=== PATIENT | male | born 1955 | race Caucasian/White ===

== ENCOUNTER 2022-11-25 09:32 | Inpatient (IN) ==
[2022-11-25] MEDS ORDERED: LABETALOL HCL IV 5 MG/ML 20ML IV STA (10:37)
--- NOTE | 2022-11-25 10:37 | Emergency Department Note ---
Impression & Plan Diplopia, Hypertension, Arrhythmia ED Provider Note Name: SERENA ADAMES Age: 67 Sex: M Arrives Via: Walk-In Informant: Patient, ED Provider: Doe Scott MD Chief Complaint: Visual disturbance Impression: As per impressions above Medical Decision Making: Pleasant 67-year-old gentleman with a history of hyperlipidemia and remote retinal tear arrives for evaluation of 30 minutes of diplopia during which said he had a disconjugate gaze and left eye looking outward. By time of arrival full resolution. He has questionable left eyebrow elevation but both t hrough his picture on his license and from discussion this is chronic for him. He has an NIH of 0 by examination. He is quite hypertensive with a blood pressure over 200. CT of the head with angio reveals no clear obstruction or mass effect or other concerning findings. Given labetalol with some improvement in the blood pressure though given concerns for stroke we will hold off on further antihypertensives at this time. He was given aspirin as concern for stroke. I also note that shortly after arrival patient had a 10 or so beat episode of what appears to be ventricular tachycardia. Patient had completely no symptoms during this and states he feels well. Initial troponin is unre markable. EKG looks good. Given concern for stroke in this arrhythmia hospitalist consulted for further management. Triage/Nursing Notes reviewed by Me Differentials:Stroke, migraine, hypertensive emergency, intracranial hemorrhage, infectious etiology, dissection, ocular spasm, V. tach, movement on lead, A-fib, many other pathologies considered. Vital Signs: reviewed and remarkable for hypertension Interventions: Labetalol 10 mg IV, aspirin 324 mg p.o. Labs:Reviewed and remarkable for no significant abnormalities Imagin view chest x-ray as per my interpretation no infiltrate, effusion, pneumothorax. CT of the head without contrast as per my informal interpretation. There is no mass effect, intracranial hemorrhage appreciated, other concerning findings. EKG:As per my interpretation. Indication strokelike symptoms. Normal sinus rhythm at 87 bpm QTc of 428. There is no ectopy no ischemia. There is no previous EKG for comparison. Cardiac/Tele Monitoring: Cardiac Monitoring: An Order was placed for continuous cardiac monitoring. The monitor shows a rate of 80 with a normal sinus rhythm. Consult: [facility] Plan: Disposition:Hospitalization. Condition: Good History of Present Illness:67-year-old gentleman arrives for evaluation of visual disturbance. Patient was making breakfast this morning around 8:30 AM. He noted sudden onset of difficulty seeing. He notes he was seeing double of everything. No dizziness, vertiginous symptoms, nausea, vomiting, headache. He had no other focal neurologic deficits. evaluated him as she is a nurse and noted that he had a disconjugate gaze with the left eye looking outward. This lasted about 1/2-hour and resolved. He has a left facial weakness which says is pretty much is typical and that his left eyebrow always raises a little more than the right and he talks out of the right side of his mouth. She does not feel he has any new focal deficits nor any slurred speech. He has been able to walk straight without difficulty. He is quite hypertensive and has no history of high blood pressure other than some mild whitecoat syndrome. He does not smoke. He does have a history of hyperlipidemia. No recent falls, trauma, injuries. He keeps relatively healthy. No recent long distance travel other than driving up from [place] yesterday. He is in town to watch the [employer] tomorrow. Past History:Hyperlipidemia, retinal detachment several years ago Past Surgical History:Hernia repair left knee replacement Home Medications:See Below Allergies:nkda Vitals:Blood Pressure: 202/112, Pulse 89, RR 16, O2 98% on RA Physical Exam: GENERAL: Patient is well appearing and in no acute distress. EYES: No scleral icterus, unremarkable pupils. ENT: Mucous membranes moist, no nasal congestion. NECK: No masses appreciated, nomeningismus, trachea is midline. RESPIRATORY: No dyspnea. Clear to auscultation and equal bilaterally. No wheeze, no rhonchi. CARDIOVASCULAR: Regular rate and rhythm.No murmurs, rubs, gallops appreciated. GASTROINTESTINAL: Abdomen soft, non-tender, no peritonitis. EXTREMITIES: Normal motion all extremities, no cyanosis, no edema. NEUROLOGIC: Alert and oriented, no acute motor or sensory deficits. There are no focal deficits of arms or legs with good strength. He has no ataxia on examination. When talking with patient he seems to talk out of the right side of his mouth with questionable left facial weakness though left eyebrow actually raises higher than right. He has full movement all facial muscles when voluntarily moving them. SKIN: No rash, no jaundice, no diaphoresis. PSYCH: Appropriate GCS: 15 ED Course: Times/Reassessments: Patient with no further arrhythmias nor symptoms. He is agreeable to hospitalization for further work-up and monitoring Doe Scott MD Past Med/Surg History Medical History (Updated 11/25/22 @ 15:48 by Doe Scott MD) Gout HLD (hyperlipidemia) Social History Smoking Status: Never smoker Feels Safe at Home: Yes Home Meds Home Medications Medication Instructions Recorded Confirmed allopurinol 100 mg tablet 100 mg PO QAM 11/25/22 11/25/22 atorvastatin 20 mg tablet 20 mg PO HS 11/25/22 11/25/22 Results & Data (ED) Vital Signs Vital Signs - 24 hr 11/25/22 09:46 11/25/22 10:04 11/25/22 10:11 Temperature Source Temporal Artery Scan Pulse Rate 97 H 95 H Pulse Rate [Apical] 89 Respiratory Rate 20 16 Respiratory Effort / Characteristics Non-Labored Non-Labored Respiratory Depth Normal Normal Blood Pressure 196/105 H Blood Pressure [Right Arm] 202/112 H Blood Pressure Mean 135 Blood Pressure Mean [Right Arm] 142 Pulse Oximetry 96 98 Oxygen Delivery Method Room Air Room Air Sepsis Recent Fever Within 48 Hours No Sepsis New/Unexplained Change in Mental Status N/A Sepsis Action Taken by Nursing No Action Required 11/25/22 10:42 11/25/22 10:57 11/25/22 11:04 Temperature Source Pulse Rate 91 H Pulse Rate [Apical] 91 H Respiratory Rate 18 Respiratory Effort / Characteristics Non-Labored Respiratory Depth Normal Blood Pressure 201/112 H 188/102 H Blood Pressure [Right Arm] 188/108 H Blood Pressure Mean Blood Pressure Mean [Right Arm] 134 Pulse Oximetry 98 Oxygen Delivery Method Room Air Sepsis Recent Fever Within 48 Hours Sepsis New/Unexplained Change in Mental Status Sepsis Action Taken by Nursing 11/25/22 12:04 Temperature Source Pulse Rate Pulse Rate [Apical] Respiratory Rate Respiratory Effort / Characteristics Respiratory Depth Blood Pressure Blood Pressure [Right Arm] 182/102 H Blood Pressure Mean Blood Pressure Mean [Right Arm] 128 Pulse Oximetry 98 Oxygen Delivery Method Room Air Sepsis Recent Fever Within 48 Hours Sepsis New/Unexplained Change in Mental Status Sepsis Action Taken by Nursing Laboratory Data 11/25/22 10:07 07/01/23 10:07 Lab Results 11/25/22 11/25/22 11/25/22 Range/Units 10:07 10:07 10:07 WBC 5.64 (4.8-10.8) K/ul RBC 5.42 (4.70-6.10) M/uL Hgb 15.4 (14.0-18.0) g/dl Hct 44.3 (42.0-52.0) % MCV 81.7 (80.0-100.0) fL MCH 28.4 (25.0-34.0) pg MCHC 34.8 (32.0-36.0) g/dL RDW Std Deviation 38.2 (36.4-46.3) fL RDW Coeff of Loi 13.0 (11.5-14.5) % Plt Count 222 (130-400) K/uL MPV 9.7 (9.4-12.4) fL Immature Gran % (Auto) 0.7 % Neut % (Auto) 60.2 % Lymph % (Auto) 25.4 % [place] % (Auto) 10.5 % Eos % (Auto) 2.0 % Baso % (Auto) 1.2 % Neut # (Auto) 3.40 (1.40-6.50) K/uL Lymph # (Auto) 1.43 (1.2-3.4) K/uL [place] # (Auto) 0.59 (0.11-0.59) K/uL Eos # (Auto) 0.11 (0-0.50) K/uL Baso # (Auto) 0.07 (0-0.2) K/uL Immature Gran # (Auto) 0.04 (0.01-0.20) K/uL PT 10.9 (9.0-12.0) Seconds INR 1.0 (0.9-1.1) APTT 24.8 (21.0-31.0) Seconds PTT Ratio 0.9 Sodium (136-145) mmol/L Potassium (3.5-5.1) mmol/L Chloride (98-107) mmol/L Carbon Dioxide (21-32) mmol/L Anion Gap (3-11) BUN (6-23) mg/dl Creatinine (0.6-1.4) mg/dl Est Cr Clr Drug Dosing ml/min Est GFR ( Amer) ml/min Est GFR (Non-Af Amer) ml/min BUN/Creatinine Ratio (10-20) Glucose (70-99(Fasting)) mg/dl Calcium (8.6-10.3) mg/dl Magnesium (1.7-2.4) mg/dl Total Bilirubin (0.2-1.0) mg/dl Direct Bilirubin (0-0.2) mg/dl AST (13-39) U/L ALT (7-52) U/L Alkaline Phosphatase (34-104) U/L Troponin I High Sens (0-20) pg/ml Total Protein (6.0-8.3) gm/dl Albumin (3.4-5.0) gm/dl TSH 1.388 (0.300-4.500) uIu/ml Urine Color Urine Appearance (Clear) Urine pH (4.5-7.5) Ur Specific [place] (1.000-1.030) Urine Protein (Negative) Urine Glucose (UA) (Negative) Urine Ketones (Negative) Urine Blood (Negative) Urine Nitrite (Negative) Urine Bilirubin (Negative) Urine Urobilinogen (Negative) Ur Leukocyte Esterase (Negative) SARS-CoV-2, RNA, NAAT (NEGATIVE) 11/25/22 11/25/22 11/25/22 Range/Units 10:07 11:32 12:21 WBC (4.8-10.8) K/ul RBC (4.70-6.10) M/uL Hgb (14.0-18.0) g/dl Hct (42.0-52.0) % MCV (80.0-100.0) fL MCH (25.0-34.0) pg MCHC (32.0-36.0) g/dL RDW Std Deviation (36.4-46.3) fL RDW Coeff of Loi (11.5-14.5) % Plt Count (130-400) K/uL MPV (9.4-12.4) fL Immature Gran % (Auto) % Neut % (Auto) % Lymph % (Auto) % [place] % (Auto) % Eos % (Auto) % Baso % (Auto) % Neut # (Auto) (1.40-6.50) K/uL Lymph # (Auto) (1.2-3.4) K/uL [place] # (Auto) (0.11-0.59) K/uL Eos # (Auto) (0-0.50) K/uL Baso # (Auto) (0-0.2) K/uL Immature Gran # (Auto) (0.01-0.20) K/uL PT (9.0-12.0) Seconds INR (0.9-1.1) APTT (21.0-31.0) Seconds PTT Ratio Sodium 138 (136-145) mmol/L Potassium 4.0 (3.5-5.1) mmol/L Chloride 105 (98-107) mmol/L Carbon Dioxide 26 (21-32) mmol/L Anion Gap 7 (3-11) BUN 17 (6-23) mg/dl Creatinine 1.28 (0.6-1.4) mg/dl Est Cr Clr Drug Dosing 65.4 ml/min Est GFR ( Amer) 65.7 ml/min Est GFR (Non-Af Amer) 56.7 ml/min BUN/Creatinine Ratio 13.3 (10-20) Glucose 107 H (70-99(Fasting)) mg/dl Calcium 9.1 (8.6-10.3) mg/dl Magnesium 1.8 (1.7-2.4) mg/dl Total Bilirubin 0.9 (0.2-1.0) mg/dl Direct Bilirubin 0.2 (0-0.2) mg/dl AST 22 (13-39) U/L ALT 23 (7-52) U/L Alkaline Phosphatase 60 (34-104) U/L Troponin I High Sens 3.3 (0-20) pg/ml Total Protein 7.0 (6.0-8.3) gm/dl Albumin 4.4 (3.4-5.0) gm/dl TSH (0.300-4.500) uIu/ml Urine Color Yellow Urine Appearance Clear (Clear) Urine pH 7.0 (4.5-7.5) Ur Specific [place] 1.042 H (1.000-1.030) Urine Protein Negative (Negative) Urine Glucose (UA) Negative (Negative) Urine Ketones Negative (Negative) Urine Blood Negative (Negative) Urine Nitrite Negative (Negative) Urine Bilirubin Negative (Negative) Urine Urobilinogen Negative (Negative) Ur Leukocyte Esterase Negative (Negative) SARS-CoV-2, RNA, NAAT NEGATIVE (NEGATIVE) Administered Medications Discontinued Medications Aspirin (Aspirin 81 Mg Chew) 324 mg PO NOW STA Stop: 11/25/22 12:09 Last Admin: 11/25/22 12:18 Dose: 324 mg Documented By: KELLEY Ioversol (Optiray 320 125ml) 120 ml IV ONCE ONE Stop: 11/25/22 10:51 Last Admin: 11/25/22 10:50 Dose: 120 ml Documented By: GERTRUDIS Labetalol HCl (Labetalol Hcl Iv 5 Mg/Ml 20ml) 10 mg IV NOW STA Stop: 11/25/22 10:38 Last Admin: 11/25/22 10:42 Dose: 10 mg Documented By: KELLEY Co-signed By: [facility] Imaging Data Radiologist's Impression: Head CTA 11/25/22 10:32 HEAD & NECK CTA HISTORY: Double vision. stroke symptoms TECHNIQUE: Multiaxial CT images of the head were performed both before and after the intravenous administration of contrast to evaluate the major cerebral vessels. Multiaxial CT images of the neck were also performed following the intravenous administration of contrast to evaluate the major cervical vessels. Maximum intensity projection images were also obtained. A dose lowering technique was utilized adhering to the principles of ALARA. COMPARISON: None. FINDINGS: Noncontrast head CT: The paranasal sinuses and mastoid air cells are clear. The calvarium and skull base are intact. The ventricles and sulci are within normal limits. There is no mass, hematoma, midline shift, acute infarct. Head CTA: Visualized intracranial internal carotid arteries, distal vertebral arteries, and basilar artery are widely patent. There is no significant stenosis, occlusion, or aneurysm seen within the bilateral ACAs, MCAs, or ornamental iron worker helper. The major dural venous sinuses appear patent. There is a hypoplastic distal right vertebral artery. There is a dominant left vertebral artery noted. There is also a severely hypoplastic right A1 segment. The aortic arch and proximal great vessels are widely patent. There is no significant stenosis, occlusion, or dissection identified within the bilateral common carotid, internal carotid, or vertebral arteries. IMPRESSION: 1. No significant stenosis, occlusion, or aneurysm within the elem of [place]. 2. No significant stenosis, occlusion, or dissection identified within the carotid or vertebral arteries. 3. No acute intracranial abnormality. ACT 112: Negative or not required by law. Electronically signed by: Roney Nickerson M.D. 11/25/2022 11:14 AM Neck CTA 11/25/22 10:32 HEAD & NECK CTA HISTORY: Double vision. stroke symptoms TECHNIQUE: Multiaxial CT images of the head were performed both before and after the intravenous administration of contrast to evaluate the major cerebral vessels. Multiaxial CT images of the neck were also performed following the intravenous administration of contrast to evaluate the major cervical vessels. Maximum intensity projection images were also obtained. A dose lowering technique was utilized adhering to the principles of ALARA. COMPARISON: None. FINDINGS: Noncontrast head CT: The paranasal sinuses and mastoid air cells are clear. The calvarium and skull base are intact. The ventricles and sulci are within normal limits. There is no mass, hematoma, midline shift, acute infarct. Head CTA: Visualized intracranial internal carotid arteries, distal vertebral arteries, and basilar artery are widely patent. There is no significant stenosis, occlusion, or aneurysm seen within the bilateral ACAs, MCAs, or ornamental iron worker helper. The major dural venous sinuses appear patent. There is a hypoplastic distal right vertebral artery. There is a dominant left vertebral artery noted. There is also a severely hypoplastic right A1 segment. The aortic arch and proximal great vessels are widely patent. There is no significant stenosis, occlusion, or dissection identified within the bilateral common carotid, internal carotid, or vertebral arteries. IMPRESSION: 1. No significant stenosis, occlusion, or aneurysm within the elem of [place]. 2. No significant stenosis, occlusion, or dissection identified within the carotid or vertebral arteries. 3. No acute intracranial abnormality. ACT 112: Negative or not required by law. Electronically signed by: Roeny Nickerson M.D. 11/25/2022 11:14 AM Chest X-Ray 11/25/22 10:33 XR chest 1V portable HISTORY: Stroke symptoms. Double vision. COMPARISON: None. FINDINGS: The lungs are clear. Cardiac silhouette is normal in size. No pleural effusions. No pneumothorax. IMPRESSION: No acute process. ACT 112: Negative or not required by law. Electronically signed by: Roney Nickerson M.D. 11/25/2022 12:18 PM Discharge Plan Visit Data Chief Complaint: Visual Disturbance Stated Complaint: DOUBLE VISION ED Provider: Doe Scott Discharge Problem: Diplopia, Hypertension, Arrhythmia Patient Disposition: Admitted As Inpatient Forms Stand Alone Forms: My [facility] Prescriptions Prescriptions: No Action atorvastatin 20 mg tablet 20 mg PO HS allopurinol 100 mg tablet 100 mg PO QAM Referrals Referrals: PCP,NO [Physician] - Hypertension Qualifiers: Hypertension type: unspecified Qualified Code(s): I10 - Essential (primary) hyp ertension Arrhythmia Qualifiers: Arrhythmia type: unspecified cardiac arrhythmia Qualified Code(s): I49.9 - Car diac arrhythmia, unspecified
[2022-11-25] MEDS ORDERED: OPTIRAY 320 125ml IV ONE (10:50)
[2022-11-25 10:54] LABS: Basophils # (auto) 0.07 K/uL (0-0.2); Basophils % (auto) 1.2 %; Eosinophils # (auto) 0.11 K/uL (0-0.50); Hematocrit (blood only) 44.3 % (42.0-52.0); Hemoglobin 15.4 g/dl (14.0-18.0); Immature Granulocytes # (auto) 0.04 K/uL (0.01-0.20); Immature Granulocytes % (auto) 0.7 %; Lymphocytes # (auto) 1.43 K/uL (1.2-3.4); Lymphocytes % (auto) 25.4 %; Mean Corpuscular Hemoglobin 28.4 pg (25.0-34.0); Mean Corpuscular Hgb Conc 34.8 g/dL (32.0-36.0); Mean Corpuscular Volume 81.7 fL (80.0-100.0); Mean Platelet Volume 9.7 fL (9.4-12.4); Monocytes # (auto) 0.59 K/uL (0.11-0.59); Monocytes % (auto) 10.5 %; Neutrophils % (auto) 60.2 %; Platelet Count 222 K/uL (130-400); RDW Standard Deviation 38.2 fL (36.4-46.3); Red Blood Count 5.42 M/uL (4.70-6.10); White Blood Count 5.64 K/ul (4.8-10.8)
[2022-11-25 11:05] LABS: Albumin Level 4.4 gm/dl (3.4-5.0); BUN Creatinine Ratio 13.3 (10-20); Bilirubin Direct 0.2 mg/dl (0-0.2); Bilirubin,Total 0.9 mg/dl (0.2-1.0); Calcium 9.1 mg/dl (8.6-10.3); Creatinine Clr Calc Pharmacy 65.4 ml/min; Est GFR (African American) 65.7 ml/min; Est GFR (Non-African American) 56.7 ml/min; Magnesium 1.8 mg/dl (1.7-2.4)
[2022-11-25 11:11] LABS: Troponin I High Sensitivity 3.3 pg/ml (0-20)
[2022-11-25 11:14] LABS: Partial Thromboplastin Ratio 0.9; Partial Thromboplastin Time 24.8 Seconds (21.0-31.0); Prothrombin Time 10.9 Seconds (9.0-12.0)
--- NOTE | 2022-11-25 11:16 | CT Scan Report ---
HEAD & NECK CTA HISTORY: Double vision. stroke symptoms TECHNIQUE: Multiaxial CT images of the head were performed both before and after the intravenous admi nistration of contrast to evaluate the major cerebral vessels. Multiaxial CT images of the neck were also performed following the intravenous administration of contrast to evaluate the major cervical ve ssels. Maximum intensity projection images were also obtained. A dose lowering technique was utilized adhering to the principles of ALARA. COMPARISON: None. FINDINGS: Noncontrast head CT: The paranasal sinuses and mastoid air cells are clear. The calvarium and skull b ase are intact. The ventricles and sulci are within normal limits. There is no mass, hematoma, midlin e shift, acute infarct. Head CTA: Visualized intracranial internal carotid arteries, distal vertebral arteries, and basilar a rtery are widely patent. There is no significant stenosis, occlusion, or aneurysm seen within the la ateral ACAs, MCAs, or high scaler. The major dural venous sinuses appear patent. There is a hypoplastic dist al right vertebral artery. There is a dominant left vertebral artery noted. There is also a severely hypoplastic right A1 segment. The aortic arch and proximal great vessels are widely patent. There is no significant stenosis, occ lusion, or dissection identified within the bilateral common carotid, internal carotid, or vertebral arteries. IMPRESSION: 1. No significant stenosis, occlusion, or aneurysm within the [place]. 2. No significant stenosis, occlusion, or dissection identified within the carotid or vertebral arter ies. 3. No acute intracranial abnormality. ACT 112: Negative or not required by law. Electronically signed by: Roney Nickerson M.D. 11/25/2022 11:14 AM
--- NOTE | 2022-11-25 11:16 | CT Scan Report ---
HEAD & NECK CTA HISTORY: Double vision. stroke symptoms TECHNIQUE: Multiaxial CT images of the head were performed both before and after the intravenous admi nistration of contrast to evaluate the major cerebral vessels. Multiaxial CT images of the neck were also performed following the intravenous administration of contrast to evaluate the major cervical ve ssels. Maximum intensity projection images were also obtained. A dose lowering technique was utilized adhering to the principles of ALARA. COMPARISON: None. FINDINGS: Noncontrast head CT: The paranasal sinuses and mastoid air cells are clear. The calvarium and skull b ase are intact. The ventricles and sulci are within normal limits. There is no mass, hematoma, midlin e shift, acute infarct. Head CTA: Visualized intracranial internal carotid arteries, distal vertebral arteries, and basilar a rtery are widely patent. There is no significant stenosis, occlusion, or aneurysm seen within the la ateral ACAs, MCAs, or harpsichord maker. The major dural venous sinuses appear patent. There is a hypoplastic dist al right vertebral artery. There is a dominant left vertebral artery noted. There is also a severely hypoplastic right A1 segment. The aortic arch and proximal great vessels are widely patent. There is no significant stenosis, occ lusion, or dissection identified within the bilateral common carotid, internal carotid, or vertebral arteries. IMPRESSION: 1. No significant stenosis, occlusion, or aneurysm within the [place]. 2. No significant stenosis, occlusion, or dissection identified within the carotid or vertebral arter ies. 3. No acute intracranial abnormality. ACT 112: Negative or not required by law. Electronically signed by: Roney Nickerson M.D. 11/25/2022 11:14 AM
[2022-11-25 11:53] LABS: Appearance Urine Clear (Clear); Bilirubin Urine Negative (Negative); Blood Urine Negative (Negative); Color Urine Yellow; Glucose Urine UA Negative (Negative); Ketones Urine Negative (Negative); Leukocyte Esterase Urine Negative (Negative); Nitrite Urine Negative (Negative); Protein Urine Negative (Negative); Specific Gravity Urine 1.042 (1.000-1.030); Urobilinogen Urine Negative (Negative)
[2022-11-25] MEDS ORDERED: ASPIRIN 81 MG CHEW PO STA (12:08)
--- NOTE | 2022-11-25 12:20 | XRay Report ---
XR chest 1V portable HISTORY: Stroke symptoms. Double vision. COMPARISON: None. FINDINGS: The lungs are clear. Cardiac silhouette is normal in size. No pleural effusions. No pneumot horax. IMPRESSION: No acute process. ACT 112: Negative or not required by law. Electronically signed by: Roney Nickerson M.D. 11/25/2022 12:18 PM
--- NOTE | 2022-11-25 12:28 | History & Physical Report ---
Date of Service November 25, 2022 Assessment & Plan (1) Diplopia: (2) Skew deviation of left eye: (3) Hypertensive urgency: (4) HLD (hyperlipidemia): Plan: - Admit to PCU for observation - Stroke order set completed, no indication for thrombolytic - CTA head and neck reviewed and is negative - MRI brain wo contrast ordered - Consider neurology consult - Given full dose aspirin in the er - BP elevated at 202/112 in the ER, given lebatolol 10 mg IV x 1 with impro vement of BP 180/100, prn lebatolol ordered with parameters. Will allow permissive hypertension with SBP 140-180, pt is not on BP medication at home, will need to have PCP follow this upon discharge vs considering starting low dose antihypertensive - EKG with SVT x5 beats, patient was asymptomatic during such and was sitting down when this occurred on EKG, monitor with troponins, initial was negative, complete echo ordered - PT/OT consults placed - Check lipid panel and A1c with a.m. labs DVT ppx: - teds, scds CODE: Full code Dispo: From home, likely to remain in the hospital x 1-2 days A total of 78 minutes were spent with greater than 50% of that time face to face with the patient, personally reviewing all current laboratories, imaging studies, past medication reconciliation, outpatient chart review, and discussion with specialists to collaborate care for the patient with attending. Please see attending documentation for corrections and/or additions. History of Present Illness Chief Complaint: Diplopia x30 minutes Primary Care Provider: JAY JAY BARAJAS This is a 67-year-old male with PMHx of HLD, HTN, history of bilateraly retinal detachment s/p repair, HLD, who presents today with acute onset of diplopia and left-sided conjugate gaze which occurred this morning at 8am and lasted ~45 min, and now is completely resolved. This was noticed while he was cooking breakfast. His is with him at bedside who is a retired CORRESPONDENCE REPRESENTATIVE, and notes that his left eyebrow is always slightly elevated, and that the left eye was in a lateral gaze, but was able to move appropriately with visual field testing. He denies any other symptoms such as focal weakness, numbness, slurred speech, dysphagia, or pain. Pt proceeded to get a shower, and then he cracked his neck to the left side, his symptoms seemed to completely resolve. Pt also notes that 2 days ago, he was sleeping and had a cramp in the left side of his neck and it has slowly improved. BP is noted elevated at 200/100s in the ER and was administered lebatolol 10 mg IV with some improvement. In the past, pt has been told that he had elevated BP by PCP for at least 2 years. states his BP normally runs 145/70s at home regularly. He is currently taking atorvastatin 20 mg daily and allopurinol for hx of gout which he had a few years ago, without recurrent flares. They were in the area from [facility], for the [employer] as their son and [id number] are competing in tomorrow morning. Pt reports he exercises routinely with a stepper, weight lifting, very active. Denies smoking, has an occasional alcoholic drink with beer, denies drug use or marijuana use. 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 Hernia Repair Tonsillectomy Home Medications Medication Instructions Recorded Confirmed Type allopurinol 100 mg tablet 100 mg PO QAM 11/25/22 11/25/22 History atorvastatin 20 mg tablet 20 mg PO HS 11/25/22 11/25/22 History Past Med/Surg History Medical History (Updated 11/25/22 @ 15:48 by Doe Scott MD) Gout HLD (hyperlipidemia) Social History Smoking Status: Never smoker Hx Alcohol Use: Yes Alcohol type: beer Hx Substance Use: No Preferred Language: [place]inean Communication Ability: Effective Lead Software Development Engineer Required: No Beliefs That Will Affect Care: None Current Living Situation: Spouse Other Information That Helps Us Care for You: No Feels Safe at Home: Yes Safety Concerns: Feels Safe At This Time Assistive Devices: Glasses Review of Systems Review of Systems: Constitutional: No fever, sweats or chills Eyes: + diplopia and left sided gaze as per HPI, now resolved, no worsening or blurred vision ENT: normal hearing, no trouble swallowing Respiratory: No cough, sputum, dyspnea at rest or on exertion Cardiovascular: No chest pain, tightness or palpitations Abdomen: No pain, nausea, vomiting, diarrhea or constipation Musculoskeletal: No joint pain, calf pain, swelling Neurologic: No weakness, numbness/tingling, or balance problems Psychiatric: No anxiety or depression Skin: No rash or itch Physical Exam Physical Exam: General: awake, alert, no apparent distress Head: Normocephalic, atraumatic ENT: PERRL, EOMI, visual hawkins intact, can follow finger to nose testing without difficulty, no nystagmus, no pharyngeal exudate, mucous membranes moist Chest: Clear to auscultation, on room air, no adventitious breath sounds Cardiac: Regular rate and rhythm, no murmur, no JVD, normal peripheral pulses, good capillary refill Abdominal: NABS x 4 quadrants, soft, nondistended, nontender to palpation, no rebound or guarding Extremities: Normal inspection, no peripheral edema or erythema, calfs nontender to palpation Psych: Normal mood and affect Neuro: AAO x 3, isual hawkins intact, can follow finger to nose testing without difficulty, no nystagmus, CN II=XII intact, strength intact bilaterally and rated 5/5, no motor deficits, speech is clear, no peripheral sensory deficits Results & Data Results & Data Vital Signs (Past 12 Hours) Vital Signs Pulse Pulse Resp BP BP Pulse Ox O2 Del Method 11/25/22 12:04 182/102 H 98 Room Air 11/25/22 11:04 188/102 H 11/25/22 10:57 91 H 18 188/108 H 98 Room Air 11/25/22 10:42 91 H 201/112 H 11/25/22 10:11 89 16 202/112 H 98 Room Air 11/25/22 10:04 95 H 11/25/22 09:46 97 H 20 196/105 H 96 Room Air Laboratory Results 11/25/22 11/25/22 11/25/22 11:32 10:07 10:07 WBC 5.64 RBC 5.42 Hgb 15.4 Hct 44.3 MCV 81.7 MCH 28.4 MCHC 34.8 RDW Std Deviation 38.2 RDW Coeff of Loi 13.0 Plt Count 222 MPV 9.7 Immature Gran % (Auto) 0.7 Neut % (Auto) 60.2 Lymph % (Auto) 25.4 Metcalfe % (Auto) 10.5 Eos % (Auto) 2.0 Baso % (Auto) 1.2 Neut # (Auto) 3.40 Lymph # (Auto) 1.43 [place] # (Auto) 0.59 Eos # (Auto) 0.11 Baso # (Auto) 0.07 Immature Gran # (Auto) 0.04 PT INR APTT PTT Ratio Sodium 138 Potassium 4.0 Chloride 105 Carbon Dioxide 26 Anion Gap 7 BUN 17 Creatinine 1.28 Est Cr Clr Drug Dosing 65.4 Est GFR ( Amer) 65.7 Est GFR (Non-Af Amer) 56.7 BUN/Creatinine Ratio 13.3 Glucose 107 H Calcium 9.1 Magnesium 1.8 Total Bilirubin 0.9 Direct Bilirubin 0.2 AST 22 ALT 23 Alkaline Phosphatase 60 Troponin I High Sens 3.3 Total Protein 7.0 Albumin 4.4 TSH Urine Color Yellow Urine Appearance Clear Urine pH 7.0 Ur Specific [place] 1.042 H Urine Protein Negative Urine Glucose (UA) Negative Urine Ketones Negative Urine Blood Negative Urine Nitrite Negative Urine Bilirubin Negative Urine Urobilinogen Negative Ur Leukocyte Esterase Negative 11/25/22 11/25/22 10:07 10:07 WBC RBC Hgb Hct MCV MCH MCHC RDW Std Deviation RDW Coeff of Loi Plt Count MPV Immature Gran % (Auto) Neut % (Auto) Lymph % (Auto) [place]cal[place] % (Auto) Eos % (Auto) Baso % (Auto) Neut # (Auto) Lymph # (Auto) [place] # (Auto) Eos # (Auto) Baso # (Auto) Immature Gran # (Auto) PT 10.9 INR 1.0 APTT 24.8 PTT Ratio 0.9 Sodium Potassium Chloride Carbon Dioxide Anion Gap BUN Creatinine Est Cr Clr Drug Dosing Est GFR ( Amer) Est GFR (Non-Af Amer) BUN/Creatinine Ratio Glucose Calcium Magnesium Total Bilirubin Direct Bilirubin AST ALT Alkaline Phosphatase Troponin I High Sens Total Protein Albumin TSH 1.388 Urine Color Urine Appearance Urine pH Ur Specific [place] Urine Protein Urine Glucose (UA) Urine Ketones Urine Blood Urine Nitrite Urine Bilirubin Urine Urobilinogen Ur Leukocyte Esterase Diagnostic Findings Head CTA 11/25/22 10:32 HEAD & NECK CTA HISTORY: Double vision. stroke symptoms TECHNIQUE: Multiaxial CT images of the head were performed both before and after the intravenous administration of contrast to evaluate the major cerebral v essels. Multiaxial CT images of the neck were also performed following the intravenous administration of contrast to evaluate the major cervical vessels. Maximum intensity projection images were also obtained. A dose lowering technique was utilized adhering to the principles of ALARA. COMPARISON: None. FINDINGS: Noncontrast head CT: The paranasal sinuses and mastoid air cells are clear. The calvarium and skull base are intact. The ventricles and sulci are within normal limits. There is no mass, hematoma, midline shift, acute infarct. Head CTA: Visualized intracranial internal carotid arteries, distal vertebral arteries, and basilar artery are widely patent. There is no significant stenosis, occlusion, or aneurysm seen within the bilateral ACAs, MCAs, or warehouse guard. The major dural venous sinuses appear patent. There is a hypoplastic distal right vertebral artery. There is a dominant left vertebral artery noted. There is also a severely hypoplastic right A1 segment. The aortic arch and proximal great vessels are widely patent. There is no significant stenosis, occlusion, or dissection identified within the bilateral common carotid, internal carotid, or vertebral arteries. IMPRESSION: 1. No significant stenosis, occlusion, or aneurysm within the [place] of [place]. 2. No significant stenosis, occlusion, or dissection identified within the carotid or vertebral arteries. 3. No acute intracranial abnormality. ACT 112: Negative or not required by law. Electronically signed by: Roney Nickerson M.D. 11/25/2022 11:14 AM Neck CTA 11/25/22 10:32 HEAD & NECK CTA HISTORY: Double vision. stroke symptoms TECHNIQUE: Multiaxial CT images of the head were performed both before and after the intravenous administration of contrast to evaluate the major cerebral vessels. Multiaxial CT images of the neck were also performed following the intravenous administration of contrast to evaluate the major cervical vessels. Maximum intensity projection images were also obtained. A dose lowering technique was utilized adhering to the principles of ALARA. COMPARISON: None. FINDINGS: Noncontrast head CT: The paranasal sinuses and mastoid air cells are clear. The calvarium and skull base are intact. The ventricles and sulci are within normal limits. There is no mass, hematoma, midline shift, acute infarct. Head CTA: Visualized intracranial internal carotid arteries, distal vertebral arteries, and basilar artery are widely patent. There is no significant stenosis, occlusion, or aneurysm seen within the bilateral ACAs, MCAs, or warehouse guard. The major dural venous sinuses appear patent. There is a hypoplastic distal right vertebral artery. There is a dominant left vertebral artery noted. There is also a severely hypoplastic right A1 segment. The aortic arch and proximal great vessels are widely patent. There is no significant stenosis, occlusion, or dissection identified within the bilateral common carotid, internal carotid, or vertebral arteries. IMPRESSION: 1. No significant stenosis, occlusion, or aneurysm within the [place]. 2. No significant stenosis, occlusion, or dissection identified within the carotid or vertebral arteries. 3. No acute intracranial abnormality. ACT 112: Negative or not required by law. Electronically signed by: Roney Nickerson M.D. 11/25/2022 11:14 AM Chest X-Ray 11/25/22 10:33 XR chest 1V portable HISTORY: Stroke symptoms. Double vision. COMPARISON: None. FINDINGS: The lungs are clear. Cardiac silhouette is normal in size. No pleural effusions. No pneumothorax. IMPRESSION: No acute process. ACT 112: Negative or not required by law. Electronically signed by: Roney Nickerson M.D. 11/25/2022 12:18 PM Code Status & VTE Plan Code Status Full code Supervising Physician Co-Signing Physician Notes Pt seen and examined by myself, Abril Wheat MD on the day of service. Care was coordinated with Kyleigh Solo PA-C. Please refer to her note for additional information. 67yoM admitted for stroke rule out in the setting of HTN and HLD. States he had an episode of diplopia with noted left eye deviation by his who is a nurse, lasted about 30 minutes this morning. Denies slurred speech or new facial droop. Head CTA, neck CTA unremarkable, MRI unremarkable. Possible TIA vs. other. Echo pending, neurology consult for further recommendations Otherwise as above.
[2022-11-25] MEDS ORDERED: ATORVASTATIN 40 MG TAB PO ONE (13:28)
--- NOTE | 2022-11-25 16:13 | Magnetic Resonance Report ---
Brain MRI WITHOUT CONTRAST HISTORY: Diplopia, r/o cva TECHNIQUE: Multiplanar multisequence MRI of the brain was performed without the use of contrast. COMPARISON STUDY: Head CTA 11/25/2022. FINDINGS: There are no areas of restricted diffusion to suggest acute infarction. The midline structu res are intact. The paranasal sinuses are clear. The mastoid air cells are clear. The ventricles and sulci are within normal limits for age. There is no mass, hematoma, midline shift. The major vascular flow-voids at the skull base are well maintained. The orbits are unremarkable. A few punctate foci o f T2 hyperintensity seen within the periventricular and subcortical white matter. These are nonspecif ic but favor minimal microvascular ischemic change given the patient's age. IMPRESSION: No acute intracranial abnormality. ACT 112: Negative or not required by law. Electronically signed by: Roney Nickerson M.D. 11/25/2022 4:11 PM
[2022-11-25] MEDS ORDERED: PHARMACIST DISCHARGE MED REC CONSULT PRN (17:12)
[2022-11-25] MEDS ORDERED: LABETALOL HCL IV 5 MG/ML 20ML IV PRN (17:12)
[2022-11-26 02:26] LABS: Basophils # (auto) 0.09 K/uL (0-0.2); Basophils % (auto) 1.2 %; Eosinophils # (auto) 0.18 K/uL (0-0.50); Eosinophils % (auto) 2.4 %; Hematocrit (blood only) 41.6 % (42.0-52.0); Hemoglobin 14.6 g/dl (14.0-18.0); Immature Granulocytes # (auto) 0.03 K/uL (0.01-0.20); Immature Granulocytes % (auto) 0.4 %; Lymphocytes % (auto) 33.9 %; Mean Corpuscular Hemoglobin 28.7 pg (25.0-34.0); Mean Corpuscular Hgb Conc 35.1 g/dL (32.0-36.0); Mean Corpuscular Volume 81.7 fL (80.0-100.0); Mean Platelet Volume 9.5 fL (9.4-12.4); Monocytes # (auto) 0.78 K/uL (0.11-0.59); Monocytes % (auto) 10.6 %; Neutrophils % (auto) 51.5 %; Platelet Count 193 K/uL (130-400); RDW Standard Deviation 38.1 fL (36.4-46.3); Red Blood Count 5.09 M/uL (4.70-6.10); White Blood Count 7.38 K/ul (4.8-10.8)
[2022-11-26 02:38] LABS: BUN Creatinine Ratio 15.1 (10-20); Calcium 8.9 mg/dl (8.6-10.3); Chol HDL Ratio 4.3 (0-5); Est GFR (African American) 82.6 ml/min; Est GFR (Non-African American) 71.3 ml/min
[2022-11-26 07:18] LABS: Estimated Average Glucose 108 mg/dl; Hemoglobin A1C 5.4 % (4.5-5.6)
[2022-11-26] MEDS: Patient's ALLERGY Info needs ENTERED SCH ×2 (08:27→08:29)
[2022-11-26] MEDS ORDERED: ATORVASTATIN 40 MG TAB PO SCH (09:00)
[2022-11-26] MEDS ORDERED: allopurinoL 100 MG TAB PO SCH (09:00)
[2022-11-26] MEDS ORDERED: amLODIPine BESYLATE 5 MG TAB PO SCH ×2 (09:00→09:45)
[2022-11-26] MEDS ORDERED: ASPIRIN 81 MG ECTAB PO SCH (09:00)
--- NOTE | 2022-11-26 09:08 | Neurology Consultation ---
Date of Consultation November 26, 2022 Assessment & Plan (1) Diplopia: (2) Hypertensive urgency: Plan 67-year-old male presenting with a 30-minute episode of horizontal diplopia in the context of hypertensive urgency. He may have had a transient ischemic 3rd nerve palsy (TIA) triggered by hypertensive urgency. No evidence of vascular lesion identified on CT angiography of the head and neck. No evidence of acute or subacute stroke identified on brain MRI. He has a normal sinus rhythm. I agree with the addition of aspirin 81 mg/day. I agree with increasing patient's dosage of atorvastatin. Goal LDL 70 or less. Because his LDL is 80, he may not require the 80 mg atorvastatin dosage long- term, could be reduced to 40 mg/day. I agree with the addition of amlodipine. He should continue with an antihypertensive at time of discharge and will need ongoing follow-up with his PCP. No further neurologic recommendations. History of Present Illness Reason for Consultation: TIA Requesting Physician: Kyleigh Solo PA-C Attending Physician: Emmett Cho MD History of Present Illness The patient is a 67-year-old male, visiting from out of town to watch his daughter in a local race, who presented to the emergency department yesterday with a chief complaint of double vision that began suddenly at around 8:30 AM. He proceeded to [id number] objects, with one of them appearing closer than the other. His spouse observed his left eye deviating laterally. The symptoms lasted for about 30 minutes and have completely resolved. He denies experiencing any associated vision loss or ocular pain. No headache or neck pain. He denies experiencing any associated weakness or numbness of the limbs or change in speech during the episode. He has been afebrile and hypertensive. A CTA of the head and neck were unremarkable. A brain MRI was negative for acute abnormality. I independently reviewed these images. No evidence of acute or subacute stroke. There is mild microvascular ischemic disease. An electrocardiogram reveals a normal sinus rhythm. A CBC and comprehensive metabolic panel are unremarkable. Cholesterol 138, LDL 80. Allergies Allergy/AdvReac Type Severity Reaction Status Date / Time No Known Allergies Allergy Verified 11/26/22 08:36 Home Medications Medication Instructions Recorded Confirmed Type allopurinol 100 mg tablet 100 mg PO QAM 11/25/22 11/25/22 History atorvastatin 20 mg tablet 20 mg PO HS 11/25/22 11/25/22 History Patient History Medical History Gout HLD (hyperlipidemia) Social History Smoking Status: Never smoker Hx Alcohol Use: Yes Alcohol type: beer Hx Substance Use: No Preferred Language: [place] Communication Ability: Effective Credit And Collection Manager Required: No Beliefs That Will Affect Care: None Current Living Situation: Spouse Other Information That Helps Us Care for You: No Feels Safe at Home: Yes Safety Concerns: Feels Safe At This Time Assistive Devices: Glasses Review of Systems Constitutional: no fever and no chills Eyes: as per Subjective / HPI and + diplopia; no blind spots and no eye pain Ear, Nose, Mouth, Throat: no hearing loss Respiratory: no cough and no dyspnea Cardiovascular: no chest pain and no palpitations Gastrointestinal: no nausea and no vomiting Genitourinary: no urinary incontinence Musculoskeletal: no neck pain and no myalgia Integumentary: no rash and no lesions Neurologic: as per Subjective / HPI; no gait abnormality, no localized weakness, no loss of sensation, no lack of coordination, no syncope, no headache(s) and no confusion Psychiatric: no depression and no anxiety Hematologic / Lymphatic: no easy bleeding and no easy bruising Exam (Neuro) Constitutional: well developed and well nourished; no acute distress Eyes: normal visual hawkins by confrontation, PERRL, normal accommodation and EOM intact bilaterally; no fundoscopic abnormality, no nystagmus and no papilledema Cardiovascular: Vessels: normal carotid upstroke; no carotid bruit Neurologic: Oriented to:: Person, Place and Time Memory: Short Term Intact and Remote Intact Attention: Span Intact and Concentration Intact Language: Naming Objects and Repeating Phrases Speech Fluency: negative Dysarthria Speech Aphasia: negative Aphasia Fund of Knowledge: Current Events, Past History and Vocabulary Cranial Nerves: Normal II (Visual hawkins full to confrontation, visual acuity normal), III, IV, (Pupils equal round reactive to light and accommodation, eye movements normal), V (Facial sensation intact), VII (There is no facial droop or weakness), VIII (Hearing intact), IX, X (Palate elevates to midline), XI (Shoulder shrug intact) and XII (Tongue protrudes to midline) Motor Strength: Normal Lower Extremities and Normal Upper Extremities; negative Pronator Drift Motor Tone: Normal Lower Extremities and Normal Upper Extremities Muscle Bulk/Involuntary Movements: No Involuntary Movements; negative Muscle Atrophy Sensation: Light Touch Intact, Pain/Temperature Intact, Vibration Intact and Proprioception Intact Coordination: Normal; negative Limited Balance, Dysdiadochokinesia, Finger-Nose Abnormal or Heel-Kirkpatrick Abnormal Deep Tendon Reflexes: Rt Triceps: 2+, Lt Triceps: 2+, Rt Biceps: 2+, Lt Biceps: 2+, Rt Brachioradialis: 2+, Lt Brachioradialis: 2+, Rt Patellar: 2+, Lt Patellar: 2+, Rt Ankle: 2+ and Lt Ankle: 2+ Special Tests: negative Babinski Present Gait: Normal Station and Gait Results & Data Vital Signs (Past 12 Hours) Vital Signs Temp Pulse Pulse Resp BP Pulse Ox O2 Del Method 11/26/22 07:37 81 11/26/22 07:17 37.1 C 72 16 162/89 H 98 Room Air 11/26/22 03:09 36.5 C 73 18 149/90 H 96 Room Air 11/25/22 23:21 36.4 C L 75 16 165/85 H 97 Room Air 11/25/22 22:01 70 Laboratory Results WBC 7.38, hemoglobin 14.6, hematocrit 41.6, platelet count 193, sodium 139, potassium 4.0, BUN 16, creatinine 1.06, glucose 96, hemoglobin A1c 5.4, calcium 8.9, magnesium 1.8, AST 22, ALT 23, troponin 7.9, triglycerides 130, cholesterol 138, LDL 80, VLDL 26, HDL 32, TSH 1.388 Diagnostic Findings Imaging and ECG as described in the HPI. An echocardiogram reveals normal left ventricular systolic function, EF 60 to 65%, mild concentric left ventricular hypertrophy, no interatrial shunt with injection of contrast. Left atrium is mildly dilated. Coding Level of Care Code 77588 INT INP/OBS CARE MIN Diagnoses Diplopia H53.2 Hypertensive urgency I16.0
[2022-11-26] MEDS ORDERED: STROKE PATIENT DISCHARGE STA (09:33)
--- NOTE | 2022-11-26 09:49 | Hospitalist Progress Note ---
Date of Service November 26, 2022 Assessment & Plan (1) Diplopia: (2) Skew deviation of left eye: (3) Hypertensive urgency: (4) HLD (hyperlipidemia): Plan: per admitting service notes with addendum: Episode of diplopia, left lateral gaze Possible transient ischemic attack -CT angiogram head and neck: 1. No significant stenosis, occlusion, or aneurysm within the [place]. 2. No significant stenosis, occlusion, or dissection identified within the carotid or vertebral arteries. 3. No acute intracranial abnormality. - Brain MRI:No acute intracranial abnormality. -Echocardiogram: EF 60 to 65%, mild concentric LVH, grade 1 diastolic dysfunction, no significant aortic valvular stenosis, mild mitral vegetation, mild tricuspid regurgitation, no interatrial shunt - EKG with SVT x5 beats, patient was asymptomatic during such and was sitting down when this occurred on EKG -Lipid panel: Triglyceride 130, total cholesterol 138, LDL 80, HDL [address] Tru Butler Episode felt to be secondary to TIA, 3rd nerve palsy, precipitated by hypertensive urgency Recommend addition of aspirin 81 mg daily and increasing atorvastatin to 40 mg/day Amlodipine 5 mg daily for hypertension -- Follow-up with primary care physician in 1 week plan of care discussed with patient and his in detail and at length all questions answered they are understanding, agreeable, comfortable with the plan of care Admission and Anticipated Discharge Date Admission Date: November 25, 2022 Subjective Follow-up for possible TIA, etc. Seen resting in chair, comfortable, in good spirits States he feels much better overall No recurrence of diplopia, lateral gaze No other focal neurologic deficits noted no chest pain, dyspnea, palpitations, dizziness Ambulating with no problems States he is ready for discharge today Patient's at the bedside visiting, agreeable with the plan of care Review of Systems Review of Systems: all noted and negative except for above Physical Exam Physical Exam: General- oriented x 3, not in distress, speaks in sentences with no effort or accessory muscle use Eyes- anicteric Neck- no JVD Lungs- clear breath sounds bilaterally, no rales/wheezes Heart- normal rate, regular rhythm; no murmurs Abdomen- normal bowel sounds, nondistended, soft, nontender Extremities- no pretibial edema, no calf tenderness Neuro- alert, oriented x 3; no gross focal neurologic deficits Skin- warm & dry Results & Data Results & Data Vital Signs (Past 12 Hours) Vital Signs Temp Pulse Pulse Resp BP Pulse Ox O2 Del Method 11/26/22 09:40 37.1 C 72 16 162/89 H 98 11/26/22 07:37 81 11/26/22 07:17 37.1 C 72 16 162/89 H 98 Room Air 11/26/22 03:09 36.5 C 73 18 149/90 H 96 Room Air 11/25/22 23:21 36.4 C L 75 16 165/85 H 97 Room Air 11/25/22 22:01 70 all noted and reviewed including below
--- NOTE | 2022-11-26 16:19 | Discharge Summary ---
Discharge Summary Date of Service November 26, 2022 Notes For Next Care Provider Medication Changes From Visit New medication: Aspirin 81 mg p.o. daily Amlodipine 5 mg daily Change with medication regimen: Increase atorvastatin to 40 mg p.o. at bedtime Admission HPI Per Admitting Provider This is a 67-year-old male with PMHx of HLD, HTN, history of bilateraly retinal detachment s/p repair, HLD, who presents today with acute onset of diplopia and left-sided conjugate gaze which occurred this morning at 8am and lasted ~45 min, and now is completely resolved. This was noticed while he was cooking breakfast. His is with him at bedside who is a retired EGG [employer], and notes that his left eyebrow is always slightly elevated, and that the left eye was in a lateral gaze, but was able to move appropriately with visual field testing. He denies any other symptoms such as focal weakness, numbness, slurred speech, dysphagia, or pain. Pt proceeded to get a shower, and then he cracked his neck to the left side, his symptoms seemed to completely resolve. Pt also notes that 2 days ago, he was sleeping and had a cramp in the left side of his neck and it has slowly improved. BP is noted elevated at 200/100s in the ER and was administered lebatolol 10 mg IV with some improvement. In the past, pt has been told that he had elevated BP by PCP for at least 2 years. states his BP normally runs 145/70s at home regularly. He is currently taking atorvastatin 20 mg daily and allopurinol for hx of gout which he had a few years ago, without recurrent flares. They were in the area from [facility], for the Rapid Pathogen Screening as their son and [id number] are competing in tomorrow morning. Pt reports he exercises routinely with a stepper, weight lifting, very active. Denies smoking, has an occasional alcoholic drink with beer, denies drug use or marijuana use. 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 Hernia Repair Tonsillectomy Admission Exam Per Admitting Provider General: awake, alert, no apparent distress Head: Normocephalic, atraumatic ENT: PERRL, EOMI, visual hawkins intact, can follow finger to nose testing without difficulty, no nystagmus, no pharyngeal exudate, mucous membranes moist Chest: Clear to auscultation, on room air, no adventitious breath sounds Cardiac: Regular rate and rhythm, no murmur, no JVD, normal peripheral pulses, good capillary refill Abdominal: NABS x 4 quadrants, soft, nondistended, nontender to palpation, no rebound or guarding Extremities: Normal inspection, no peripheral edema or erythema, calfs nontender to palpation Psych: Normal mood and affect Neuro: AAO x 3, isual hawkins intact, can follow finger to nose testing without difficulty, no nystagmus, CN II=XII intact, strength intact bilaterally and rated 5/5, no motor deficits, speech is clear, no peripheral sensory deficits Principal Dx & Hospital Course #1 = Principal Diagnosis (1) Diplopia: (2) Skew deviation of left eye: (3) Hypertensive urgency: (4) HLD (hyperlipidemia): per admitting service notes with addendum: Episode of diplopia, left lateral gaze Possible transient ischemic attack -CT angiogram head and neck: 1. No significant stenosis, occlusion, or aneurysm within the [place]. 2. No significant stenosis, occlusion, or dissection identified within the carotid or vertebral arteries. 3. No acute intracranial abnormality. - Brain MRI:No acute intracranial abnormality. -Echocardiogram: EF 60 to 65%, mild concentric LVH, grade 1 diastolic dysfunction, no significant aortic valvular stenosis, mild mitral vegetation, mild tricuspid regurgitation, no interatrial shunt - EKG with SVT x5 beats, patient was asymptomatic during such and was sitting down when this occurred on EKG -Lipid panel: Triglyceride 130, total cholesterol 138, LDL 80, HDL [address] Tru Butler Episode felt to be secondary to TIA, 3rd nerve palsy, precipitated by hypertensive urgency Recommend addition of aspirin 81 mg daily and increasing atorvastatin to 40 mg/day Amlodipine 5 mg daily for hypertension -- Follow-up with primary care physician in 1 week plan of care discussed with patient and his in detail and at length all questions answered they are understanding, agreeable, comfortable with the plan of care Discharge Exam General- oriented x 3, not in distress, speaks in sentences with no effort or accessory muscle use Eyes- anicteric Neck- no JVD Lungs- clear breath sounds bilaterally, no rales/wheezes Heart- normal rate, regular rhythm; no murmurs Abdomen- normal bowel sounds, nondistended, soft, nontender Extremities- no pretibial edema, no calf tenderness Neuro- alert, oriented x 3; no gross focal neurologic deficits Skin- warm & dry Updated Medication List Medication Instructions Recorded Confirmed Type allopurinol 100 mg tablet 100 mg PO QAM 11/25/22 11/25/22 History atorvastatin 20 mg tablet 20 mg PO HS 11/25/22 11/25/22 History amlodipine 5 mg tablet (Norvasc) 5 mg PO QAM 30 days #30 tabs 11/26/22 Rx aspirin 81 mg tablet,delayed 81 mg PO QAM 30 days #30 tabs 11/26/22 Rx release Hospital Stay Data Consultations 11/25/22 12:23 ED Decision to Admit Stat 11/25/22 16:47 Consult Neurology Routine Diagnostic Imagining Performed 11/25/22 10:32 CT angio head wo/w Stat CT angio neck with con Stat FINDINGS: Noncontrast head CT: The paranasal sinuses and mastoid air cells are clear. The calvarium and skull base are intact. The ventricles and sulci are within normal limits. There is no mass, hematoma, midline shift, acute infarct. Head CTA: Visualized intracranial internal carotid arteries, distal vertebral arteries, and basilar artery are widely patent. There is no significant stenosis, occlusion, or aneurysm seen within the bilateral ACAs, MCAs, or utility pipe layer. The major dural venous sinuses appear patent. There is a hypoplastic distal right vertebral artery. There is a dominant left vertebral artery noted. There is also a severely hypoplastic right A1 segment. The aortic arch and proximal great vessels are widely patent. There is no sign ificant stenosis, occlusion, or dissection identified within the bilateral common carotid, internal carotid, or vertebral arteries. IMPRESSION: 1. No significant stenosis, occlusion, or aneurysm within the [place]. 2. No significant stenosis, occlusion, or dissection identified within the carotid or vertebral arteries. 3. No acute intracranial abnormality. ACT 112: Negative or not required by law. 11/25/22 13:25 MR brain wo con Routine FINDINGS: There are no areas of restricted diffusion to suggest acute infarction. The midline structures are intact. The paranasal sinuses are clear. The mastoid air cells are clear. The ventricles and sulci are within normal limits for age. There is no mass, hematoma, midline shift. The major vascular flow-voids at the skull base are well maintained. The orbits are unremarkable. A few punctate foci of T2 hyperintensity seen within the periventricular and subcortical white matter. These are nonspecific but favor minimal microvascular ischemic change given the patient's age. IMPRESSION: No acute intracranial abnormality. ACT 112: Negative or not required by law. Pending Results Patient Have Any Pending Studies at Discharge: No Discharge Instructions Given to Patient (Per Discharging Provider) PLEASE REFER TO YOUR NEW MEDICATION LIST AND FOLLOW INSTRUCTIONS CAREFULLY. YOUR NEW MEDICATIONS INCLUDE: ASPIRIN - antiplatelet to prevent transient ischemic attack (TIA) or stroke AMLODIPINE - for blood pressure control PLEASE CALL YOUR PRIMARY CARE PHYSICIAN OR RETURN TO THE ER IF WITH WORSENING OF SYMPTOMS, INCLUDING visual disturbance, double vision, focal weakness or numbness, etc. FOLLOW UP WITH PRIMARY CARE PHYSICIAN IN 1 WEEK. Risk Factors for Stroke: You can reduce your chances of stroke by working with your medical provider to adopt a healthy lifestyle. Some specific ways to lower your chance of stroke are: If you are a smoker, now is the time to stop smoking cigarettes If you are diabetic, improve the control of your blood sugars Avoid excessive amounts of alcohol Control high blood pressure Lose weight if you are overweight Be sure to lead an active lifestyle Eat a healthy diet low in salt, cholesterol and fat Follow Up: It is important for you to keep your follow up appointments with your medical provider. Who to Call and When: Medical Emergencies: Call 911 immediately if you experience any of the following warning signs and symptoms of Stroke: Sudden numbness or weakness of the face, arm or leg, especially on one side of the body Sudden confusion, trouble speaking or understanding Sudden trouble seeing in one or both eyes Sudden trouble walking, dizziness, loss of balance or coordination Sudden severe headache with no cause Do not delay calling 911 if you experience any warning signs or symptoms of a stroke. Delay in seeking medical attention may affect what treatments can be given to you. Total Time Total Time Spent Total Time Spent (In Minutes): > 30 minutes
--- NOTE | 2022-11-27 22:12 | Electrocardiogram Report ---
Test Reason : Blood Pressure : / mmHG Vent. Rate : 087 BPM Atrial Rate : 087 BPM P-R Int : 162 ms QRS Dur : 066 ms QT Int : 356 ms P-R-T Axes : 055 -07 066 degrees QTc Int : 428 ms Normal sinus rhythm Normal ECG No previous ECGs available Confirmed by Sylvester Mckeon ([id number]) on 11/27/2022 10:12:09 PM Referred By: REFERRED SELF Confirmed By:Sylvester Mckeon
== END 2022-11-26 10:12 | disposition home or self-care (01) | DRG 123 ==
LOC: ED 09:32 → SUATTDRO 14:50 → 2E 14:50